=== PATIENT | male | born 1990 | race Caucasian/White ===

== ENCOUNTER 2016-11-20 21:47 | Emergency (ER) | payer MEDICAID, OTHER ==
[~2016-11-20] VITALS: Ht 182.9 cm; Wt 88.5 kg
[~2016-11-20 21:47] MED LIST: DOCU-67 PO; HYDR-4446 PO; LEVO500T6 PO; METR500S14 IV
[2016-11-20 21:53] VITALS: BP 132/77
--- NOTE | 2016-11-20 22:01 | NUR ---
TO ER BED 8
--- NOTE | 2016-11-20 22:10 | NUR ---
Patient being evaluated by physician at bedside.
[2016-11-20] MEDS ORDERED: ONDANSETRON 4 MG ODT PO ONE (22:15)
[2016-11-20] MEDS ORDERED: ONDANSETRON 4 MG/2 ML VIAL IVP ONE (22:20)
[2016-11-20 22:52] LABS: HEMATOCRIT 47.6 % (36-52); HEMOGLOBIN 15.7 g/dL (12.0-18.0); MEAN CORPUSCULAR HEMOGLOBIN 29 pg (27-31); MEAN CORPUSCULAR HGB CONC 33 g/dL (33-37); MEAN CORPUSCULAR VOLUME 87 fL (80-94); PLATELET COUNT (AUTO) 189 K/uL (140-450); RED BLOOD CELL COUNT(AUTO) 5.45 MIL/uL (4.20-6.10); RED CELL DISTRIBUTION WIDTH 12.4 % (11.6-13.7); WHITE BLOOD COUNT (AUTO) 14.9 K/uL (4.8-10.8)
[2016-11-20] MEDS ORDERED: NACL 0.9% 1,000 ML IV ONE (23:00)
[2016-11-20 23:01] LABS: ALBUMIN 4.7 g/dL (3.4-5.0); ANION GAP 17.6 (8-16); CALCIUM 9.2 mg/dL (8.5-10.1); CARBON DIOXIDE 23.8 mmol/L (21-32); CREATININE 1.2 mg/dL (0.7-1.3); POTASSIUM 3.4 mmol/L (3.5-5.1); TOTAL BILIRUBIN 1.9 mg/dL (0.0-1.0); TOTAL PROTEIN, SERUM 8.3 g/dL (6.4-8.2)
[2016-11-20 23:09] LABS: BAND % (MANUAL) 8 % (0-8); LYMPHOCYTES % (MANUAL) 8 % (20-46); MONOCYTES % (MANUAL) 1 % (5-12); NEUTROPHILS % (MANUAL) 83 (43-65)
--- NOTE | 2016-11-21 00:35 | NUR ---
RESULTD BACK AND NOTED BY ERMD AND FOR D/C
[2016-11-21 00:49] VITALS: BP 138/75
--- NOTE | 2016-11-21 00:49 | NUR ---
Patient discharged with v/s stable. Written and verbal after care instructions given and explained. Patient alert, oriented and verbalized understanding of instructions. Ambulatory with steady gait. All questions addressed prior to discharge. ID band removed. Patient advised to follow up with PMD. Rx of ZOFRAN ODT given. Patient educated on indication of medication including possible reaction and side effects. Opportunity to ask questions provided and answered.
== END 2016-11-21 00:49 | disposition home or self-care (01) ==
LOC: MED 21:47
DX: A08.4 Viral intestinal infection, unspecified (principal)
CPT/HCPCS: 76705; 80053; 82150; 83690; 85025; 96361; 96374; 99285; J2405; J7030; Q0092; S0119